=== PATIENT | female | born 1985 | race Caucasian/White ===

== ENCOUNTER → 2019-04-13 07:59 | Outpatient (CLI) | payer OTHER, BC, SELFPAY ==
--- NOTE | ~2019-04-13 | MM_ITS ---
EXAMINATION: MM diagnostic xavier LT w tata HISTORY: Left breast pain and possible left breast lump TECHNIQUE: Craniocaudal, mediolateral, and mediolateral oblique 3-D tomosynthesis images of the left breast were performed and synthetic 2-D images were generated. CAD analysis was submitted and interpr eted. COMPARISON: None, baseline BREAST PARENCHYMAL COMPOSITION: The breasts are extremely dense, which lowers the sensitivity of mamm ography. FINDINGS: No mammographic correlate is identified for the patient's reported breast pain or left shannan st lump. There is no suspicious mass, calcification, or architectural distortion. IMPRESSION: 1. No specific mammographic correlate is identified for the reported palpable abnormality of concern with the patient's left breast pain. Further evaluation at this time should be based on clinical asse ssment. Continued follow-up physical examination is recommended. 2. Recommend routine screening mammography beginning at age 40. BI-RADS Category 1: Negative Reviewed, dictated and finalized at location A. ERS IMPRESSION: 1. No specific mammographic correlate is identified for the reported palpable a bnormality of concern with the patient's left breast pain. Further evaluation a t this time should be based on clinical assessment. Continued follow-up physica l examination is recommended. 2. Recommend routine screening mammography beginning at age 40. BI-RADS Category 1: Negative
--- NOTE | ~2019-04-13 | US_ITS ---
EXAMINATION: US breast LT limited HISTORY: Not cyclic pain at the 12:00 location of the left breast. TECHNIQUE: Limited left breast ultrasound is performed. FINDINGS: There is no evidence of focal abnormal cystic or solid mass in the vicinity of the area of the patient's left breast pain. IMPRESSION: No specific sonographic correlate is identified for patient's left breast pain. Further evaluation at this time should be based on clinical assessment. Continued follow-up physical examination is recomm ended. BI-RADS Category 1: Negative Reviewed, dictated and finalized at location A. CTOR OF INSTRUCTION IMPRESSION: No specific sonographic correlate is identified for patient's left breast pain. Further evaluation at this time should be based on clinical assessment. Contin ued follow-up physical examination is recommended. BI-RADS Category 1: Negative
== END ==
PROVIDERS: PCP Nurse Practitioner Adult Health; Visit Provider Obstetrics & Gynecology
DX: N64.4 Mastodynia (principal)
CPT/HCPCS: 76642; 77061; 77065; G0279

== ENCOUNTER 2021-05-29 07:36 | Outpatient (CLI) | payer OTHER, SELFPAY ==
--- NOTE | ~2021-05-29 | MM_ITS ---
EXAMINATION: MM screening xavier BI w tata HISTORY: Screening mammogram TECHNIQUE: Craniocaudal and mediolateral oblique 3-D tomosynthesis images were obtained and synthetic 2-D images were generated. CAD analysis was submitted and interpreted. COMPARISON: April 13, 2019 diagnostic left mammogram and limited left breast ultrasound examination BREAST PARENCHYMAL COMPOSITION: The breasts are extremely dense, which lowers the sensitivity of mamm ography. FINDINGS: There is no evidence of suspicious mass, calcification, or architectural distortion to sugg est malignancy in either breast. There has been no suspicious interval change. IMPRESSION: 1. No mammographic evidence of malignancy. 2. Recommend routine screening mammography in one year. BI-RADS Category 1: Negative Reviewed, dictated and finalized at location A.
== END 2021-05-29 07:37 | disposition home or self-care (01) ==
PROVIDERS: PCP Nurse Practitioner Adult Health; Visit Provider Surgery Plastic and Reconstructive Surgery
DX: Z12.31 Encounter for screening mammogram for malignant neoplasm of breast (principal)
CPT/HCPCS: 77063; 77067

== ENCOUNTER 2021-06-17 00:11 | Day surgery (SDC) | payer OTHER, SELFPAY ==
[2021-06-13 15:36] VITALS: BMI 21.0
--- NOTE | 2021-06-13 15:45 | PC.NURSE ---
Report to the Outpatient Waiting Room, entrance under the green pavilion located off [facility], at time 0830 on date 06/17/21. OR Time: 1030. - You and your visitor will be asked a series of questions to screen for COVID 19 for your protection. - A mask is required within the hospital. One visitor will be allowed to accompany the patient into the hospital. Patients visitor will be instructed to remain with patient at all times or leave the building. We will allow the visitor to come back to the postoperative area when patient is ready. Preoperative COVID Testing Requirements: No COVID Test needed if: (proof is required; if not received patient will have Rapid Test prior to entry) - Patient has received COVID Vaccine at least 14 days prior to procedure date or - Patient has positive COVID test result within last 90 days of surgery date. COVID Test needed if above criteria is not met Patients may have clear liquids (water, carbonated beverages, clear teas, apple juice) until 3 hours prior to surgery with a maximum of 20 ounces. - No food from midnight until time of surgery Take the following medications with a SIP of water the morning of surgery: SERTRALINE Medications to discontinue per physician: N/A Date to take last dose: N/A Please no make-up, nail romanian, hairspray, perfume, deodorant, or body powder the day of surgery. No jewelry (including any body piercings) or valuables the day of surgery, leave them at home. Please take a shower or bath the night before, or the morning of, surgery with an antibacterial soap. Wear comfortable, loose fitting clothing. - Jewelry must be removed prior to entering the operating room. Rings and piercings that are not removed may be cut off. - The hospital will not accept responsibility for valuables. - Please leave all valuables, including medications, at home the day of surgery. If you are going home after surgery, a licensed commercial collections driver must drive you home. - NO public transportation without another adult. - We recommend that an adult stay with you for 24 hours following discharge. - We also recommend that you do not drive, make important decision, drink alcoholic beverages, or take any drugs that were not prescribed by your health care provider for at least 24 hours after your discharge time. Follow any additional instructions given to you from your surgeon. Telephone instructions given to SANCHEZ RAMEY and asked if any additional questions and then verbalized understanding. Patient advised to call surgeon office or pre surgery nurse liaison [phone] if any additional questions.
[2021-06-17] VITALS (9 sets, daily range): BP systolic 88–102; BP diastolic 54–72; PULSE 55–80; RESP 12–16; TEMP 36.6–37.5; O2SAT 95–100
[2021-06-17] MEDS: LACTATED RINGERS 1,000 ML 30 ML IV CONT ×2 (09:45→13:19)
--- NOTE | 2021-06-17 09:50 | WPDHPUPDATE1 ---
History and Physical Update Update Date/Time: 06/17/21 09:50 History and Physical has been reviewed, including an updated exam of the patient. There are NO changes in the patient's condition. Risks, benefits, and alternatives have been discussed and questions answered. Patient agrees to proceed with procedure.
[2021-06-17] MEDS: TRANEXAMIC ACID 1,000MG/ISO100 1,000 MG/100 ML BAG 200 MG IVPB (10:00)
--- NOTE | 2021-06-17 10:06 | P.OP_ITS ---
Procedure Note - Detailed Date of Procedure 06/17/21 Pre-op Diagnosis Micromastia Post-op Diagnosis Same Procedure Performed Augmentation mastopexy with galaflex Surgeon Jose Castro MD Anesthesia General Findings Inverted T Superior Medial pedicle Implants bilateral barbra Oropeza SoftTouch 300cc Right - REF# SSLP-300 SN [id number] Left - REF# [id number] SN [id number] Galaflex REF# [id number] Description of Procedure She is here today for bilateral breast augmentation mastopexy. Previously and again today the risks, benefits, alternatives were discussed in extensive detail. I wanted her to be very realistic about the risks involved as well as expectations. We discussed aftercare and what to monitor for. Made sure answered all of her questions to her satisfaction today and consent was obtained. Marked in the preoperative holding area with their verification. The patient was taken to the operating room placed supine on the operating table. Anesthesia was provided by anesthesiology. A surgical time-out was taken. We cleansed the skin and 1% lidocaine and 0.25% Marcaine with epinephrine was used anesthetize as a field block. She was prepped and draped in a standard sterile fashion. Tegaderm nipple Booth were placed. A 15 blade used to make an incision just superior to the inframammary fold leaving a cusp of de-epithelized tissue at the t junction. Dissection was continued until the chest wall as identified. I incised the pectoralis major along its inferior border and completely released the inferior border leaving the medial border intact. I created a subpectoral pocket in the appropriate dimensions based on our preoperative planning for the implant. I then copiously irrigated with saline solution and verified a strict hemostasis. Next the use a triple antibiotic and Betadine containing solution to irrigate the pocket. I washed my gloves with the triple antibiotic and Betadine solution. We washed the implant immediately upon opening it with this solution and only opened it when we needed it. I used implant funnel and no-touch technique. The implant was introduced into the pocket using the funnel. Having verified positioning of the implant this was closed using 2-0 Vicryl. I tailor tacked the breast into position. Placed her in a sitting position. Verified the nipple-areolar location based on preoperative planning as well as intraoperative observations and measurements in full agreement. She was placed supine. I de-epithelialized the pedicle. I then removed the inferior central portion of the breast need making sure the implant was well protected. I elevated medial and lateral tissue flaps as well for planned closure. Galaflex had been soaking in betadine implant mix. Galaflex was trimmed and sutured into place with 2-0 Vicryl bilateral. I closed along the IMF with 2-0 Stratafix. Along the vertical with 2-0 PDS. I closed around the Alirio with 3-0 strata fix. 3-0 Monocryl along the vertical. 3-0 Stratafix along the IMF. I finally closed everything with running subcut icular 4-0 Monocryl and tissue glue. Fluffs and surgical bra were placed. Estimated Blood Loss 50 Drains No Packing No Pathology None sent Complications No immediate complications Condition Stable Disposition PACU
--- NOTE | 2021-06-17 10:07 | WPDANESEPPF ---
Anes - Initial Pre Proc Eval Procedure: Operation Date: 06/17/21 10:30 Proposed Procedures p Bilateral Breast Augmentation with Mastopexy with Galaflex - Jose Castro MD Date/Time: 06/17/21 10:07 Surgeon: Jose Castro MD Pre Op Diagnosis: Micromastia Patient Data Age: 36 Gender: F Height: 1.57 m Weight: 52.16 kg Allergies Allergy/AdvReac Type Severity Reaction Status Date / Time No Known Allergies Allergy Unverified 06/17/21 09:48 Home Medications Medication Instructions Recorded Confirmed Type docusate sodium 100 mg capsule 100 mg PO DAILY #14 cap 06/02/21 06/17/21 Rx ondansetron HCl 4 mg tablet 4 mg PO Q8H #21 tablet 06/02/21 06/17/21 Rx carisoprodol 350 mg tablet 350 mg PO TID PRN #21 tablet 06/03/21 06/17/21 Rx oxycodone-acetaminophen 5 mg-325 1 tablet PO Q6H PRN #30 tablet 06/03/21 06/17/21 Rx mg tablet sertraline 50 mg PO DAILY 06/13/21 06/17/21 History Patient hx anesthesia problems: none Family hx anesthesia problems: none Results Review: All pre-operative results and documents have been reviewed as part of the pre-operative evaluation. ON LICENSE OF [facility] Past Medical History Medical History (Updated 06/17/21 @ 10:07 by Darrick Holt MD) Anxiety Surgical History Surgical History (Updated 06/17/21 @ 10:07 by Darrick Holt MD) H/O wisdom tooth extraction Social History Social History (Updated 06/17/21 @ 10:18 by Darrick Holt MD) Smoking status: Never smoker Alcohol intake: current Drinks per week: 4 Substance use: never Substance use type: does not use Living arrangements: with family Additional living arrangements comments: CHILDREN Spiritual care concerns: No Anes - Eval Final PreProcedure Day of Procedure 06/17/21 10:07 Patient weight: normal Heart: regular rate and rhythm Lungs: clear to auscultation Airway: Mallampati scale class II Neurological: alert and oriented Last oral intake: >/= 8 hours ASA classification: II Emergent: no Anesthetic plan: proceed Anesthesia type and monitoring: general LMA and standard monitoring Results Review: All pre-operative results and documents have been reviewed as part of the pre-operative evaluation. Informed Consent: The patient's anesthetic plan and its attendant risks and benefits were discussed with the patient/family/POA. Questions were solicited and answers provided to the satisfaction of the patient/family/POA.
[2021-06-17 10:24] LABS: Urine Cotinine NEGATIVE
[2021-06-17] MEDS: ceFAZolin 2 GM/D5W 50 ML 2 GM/50 ML BAG IVPB (10:29)
[2021-06-17] MEDS: BUPIVACAINE HCL 0.25% PF 30 ML VIAL INFILTRATE (10:42)
[2021-06-17] MEDS: LIDO 1%/EPINEPHRINE/PF 1:200,000 30 ML VIAL XX (10:42)
[2021-06-17] MEDS: NACL 0.9% IRRIG POUR BOTTLE 900 ML, GENTAMICIN SULFATE INJ 160 MG, ceFAZolin 2 GM, POVI... IRRIGATION (11:16)
[2021-06-17] MEDS: fentaNYL CITRATE INJ (*CRX) 100 MCG/2 ML VIAL 25 MCG IV PUSH ×4 (13:40→14:02)
[2021-06-17] MEDS: oxyCODONE HCL (*CRX) 5 MG TAB IR PO (15:05)
== END 2021-06-17 15:55 | disposition home or self-care (01) ==
PROVIDERS: PCP Nurse Practitioner Adult Health; Visit Provider Surgery Plastic and Reconstructive Surgery
PROC: (CPT 19316; principal; 2021-06-17 10:30)
DX: Z41.1 Encounter for cosmetic surgery (principal); N64.82 Hypoplasia of breast; F41.9 Anxiety disorder, unspecified; Z79.899 Other long term (current) drug therapy
CPT/HCPCS: 19316; 19325; 15777 ×2; 80307; A9270; J0690; J1100; J1580; J2250; J2405; J2704; J3010; J7120

== ENCOUNTER 2023-11-24 08:06 | Outpatient (CLI) | payer OTHER, SELFPAY ==
[2023-11-24 08:55] LABS: Hematocrit 35.5 % (37.0-47.0)
== END 2023-11-24 08:07 | disposition home or self-care (01) ==
LOC: ANHSURGERY 08:09
PROVIDERS: PCP Family Medicine; Visit Provider Obstetrics & Gynecology
DX: Z01.812 Encounter for preprocedural laboratory examination (principal); N92.6 Irregular menstruation, unspecified
CPT/HCPCS: 36415; 85014; 85018

== ENCOUNTER 2023-11-26 00:20 | Day surgery (SDC) | payer OTHER, SELFPAY ==
[2023-11-18 14:27] VITALS: BMI 21.9
--- NOTE | 2023-11-18 14:48 | PC.NURSE ---
Report to the Outpatient Waiting Room, entrance under the green pavilion located off [facility], at time _0630_ on date _11/26/23 . Planned Procedure Time: _0830__.? Time changes happen often and if your time is changed the preop area will call you the afternoon before. - You and your visitor will be asked to self-screen and do not enter if you have any COVID symptoms. Please call surgeon if you need to reschedule. - A mask is optional within the hospital at this time. Patients may have clear liquids (water, carbonated beverages, clear teas, apple juice) until 3 hours prior to surgery with a maximum of 20 ounces. - No food from midnight until time of surgery and no smoking Take only the following medications with a SIP of water on the morning of surgery: ___SERTRALINE DO NOT STOP ANY OF YOUR OTHER PRESCRIPTION MEDICATIONS PRIOR TO SURGERY EXCEPT THE FOLLOWING Medications to discontinue per physician NONE Date to take last dose____NONE Please no make-up, nail samoan, hairspray, perfume, deodorant, or body powder the day of surgery.? No jewelry (including any body piercings) or valuables the day of surgery, leave them at home.? Please take a shower or bath the night before, or the morning of, surgery with an antibacterial soap.? Wear comfortable, loose fitting clothing.? - Jewelry must be removed prior to entering the operating room.? Rings and piercings that are not removed may be cut off. - The hospital will not accept responsibility for valuables.? - Please leave all valuables, including medications, at home the day of surgery. If you are going home after surgery, a licensed passenger coach driver must drive you home.? - NO public transportation without another adult if you receive anesthesia. - We recommend that an adult stay with you for 24 hours following discharge. - We also recommend that you do not drive, make important decision, drink alcoholic beverages, or take any drugs that were not prescribed by your health care provider for at least 24 hours after your discharge time. Follow any additional instructions given to you from your surgeon. Telephone instructions given to __SANCHEZ and asked if any additional questions and then verbalized understanding. Patient advised to call surgeon office or pre surgery nurse liaison [phone] if any additional questions.
--- NOTE | 2023-11-23 12:44 | PM.IMHP ---
H&P: HPI History of Present Illness Date/Time: 11/23/23 12:44 Chief Complaint: bleeding Narrative: CC 38-year-old female with thickened endometrium proceeded suspected polyp she will undergo hysteroscopy/ dilatation curettage/polypectomy. Risks and benefits reviewed including exclusive , aspiration, bleeding transfusion perforation injury to bowel, bladder, ureters, or other internal organs with need for open laparotomy she received the OG handouts entitled hysteroscopy as well as dilatation curettage respectively. she had all questions answered she asked to proceed PMFSH Past Medical History Medical History Anxiety Surgical History Surgical History H/O wisdom tooth extraction Social History Social History Smoking status: Never smoker Alcohol intake: never Drinks per week: 4 Substance use: never Substance use type: does not use Living arrangements: with family Additional living arrangements comments: CHILDREN Gender identity (if verbalized by the patient): Female Sexual Orientation (if Verbalized by the Patient): Straight or Heterosexual Spiritual care concerns: No Meds Home Medications and Allergies Home Medications Medication Instructions Recorded Confirmed Type sertraline 50 mg tablet 50 mg PO DAILY 06/13/21 11/18/23 History Allergies Allergy/AdvReac Type Severity Reaction Status Date / Time No Known Allergies Allergy Unverified 08/14/21 10:40 Exam Const: General: cooperative, healthy appearing and comfortable Nutritional Appearance: average body habitus Orientation/consciousness: oriented to person, oriented to place and oriented to time HENMT: Head: normal to inspection Chest: Chest palpation & inspection: normal inspection of the chest Resp: Effort & Inspection: normal respiratory effort Cardio: Rate: regular rate Rhythm: regular rhythm Heart sounds: S1 normal heart sound present and S2 normal heart sound present GI: Inspection: normal to inspection : External Female Exam: normal external appearance Speculum Exam - Vagina: normal appearance of the vagina and vaginal bleeding Speculum Exam - Cervix: normal appearance of the cervix Bimanual exam- vagina & uterus: enlarged Bimanual Exam- Adnexa, other: normal adnexae Assessment and Plan Assessment and plan (1) Excessive bleeding: Code(s): R58 - Hemorrhage, not elsewhere classified Status: Acute Assessment and Plan: hysteroscopy/ dilatation curettage with probable polypectomy
--- NOTE | 2023-11-26 05:25 | WPDHPUPDATE1 ---
History and Physical Update Update Date/Time: 11/26/23 05:25 History and Physical has been reviewed, including an updated exam of the patient. There are NO changes in the patient's condition. Risks, benefits, and alternatives have been discussed and questions answered. Patient agrees to proceed with procedure.
[2023-11-26 07:07] VITALS: BP 93/60; PULSE 57; RESP 20; TEMP 36.8; O2SAT 100
[2023-11-26] MEDS: LACTATED RINGERS 1,000 ML 30 ML IV CONT (07:10)
--- NOTE | 2023-11-26 07:50 | WPDANESEPPF ---
Anes - Initial Pre Proc Eval Procedure: Operation Date: 11/26/23 08:30 Proposed Procedures p Hysteroscopy Dilation and Curettage with Polypectomy - Darrick Velazco MD Date/Time: 11/26/23 07:50 Surgeon: Darrick Velazco MD Pre Op Diagnosis: irregular bleeding,uterine polyps Patient Data Age: 38 Gender: F Height: 1.57 m Weight: 55.8 kg Last Vital Signs Temp 36.8 C 11/26/23 07:07 Pulse 57 L 11/26/23 07:07 Resp 20 11/26/23 07:07 BP 93/60 L 11/26/23 07:07 Pulse Ox 100 11/26/23 07:07 O2 Del Method Room Air 11/26/23 07:07 Allergies Allergy/AdvReac Type Severity Reaction Status Date / Time No Known Allergies Allergy Unverified 08/14/21 10:40 Home Medications Medication Instructions Recorded Confirmed Type sertraline 50 mg tablet 50 mg PO DAILY 06/13/21 11/18/23 History hydrocodone 5 mg-acetaminophen 325 1 tablet PO Q4H PRN pain #20 tabs 11/26/23 Rx mg tablet Patient hx anesthesia problems: none Family hx anesthesia problems: none Results Review: All pre-operative results and documents have been reviewed as part of the pre-operative evaluation. [facility] Past Medical History Medical History Anxiety Surgical History Surgical History H/O wisdom tooth extraction Social History Social History Smoking status: Never smoker Alcohol intake: never Drinks per week: 4 Substance use: never Substance use type: does not use Living arrangements: with family Additional living arrangements comments: CHILDREN Gender identity (if verbalized by the patient): Female Sexual Orientation (if Verbalized by the Patient): Straight or Heterosexual Spiritual care concerns: No Anes - Eval Final PreProcedure Day of Procedure 11/26/23 07:50 Patient weight: normal Heart: regular rate and rhythm Lungs: clear to auscultation Airway: Mallampati scale class II Neurological: alert and oriented Last oral intake: >/= 8 hours ASA classification: II Emergent: no Anesthetic plan: proceed Anesthesia type and monitoring: general GIVS and standard monitoring Results Review: All pre-operative results and documents have been reviewed as part of the pre-operative evaluation. Informed Consent: The patient's anesthetic plan and its attendant risks and benefits were discussed with the patient/family/POA. Questions were solicited and answers provided to the satisfaction of the patient/family/POA.
[2023-11-26 08:10] LABS: BEDSIDEPREGUCG Negative (Negative)
[2023-11-26] MEDS: LIDOCAINE HCL 1% LOCAL INJ 20 ML VIAL 10 ML INFILTRATE (08:50)
--- NOTE | 2023-11-26 08:59 | P.OP_ITS ---
Procedure Note - Detailed Date of Procedure 11/26/23 Pre-op Diagnosis irregular bleeding,uterine polyps Post-op Diagnosis Same Procedure Performed Hysteroscopy/ polypectomy/dilatation and curettage Surgeon Darrick Velazco MD Anesthesia MAC and Local Indications 38-year-old female with a uterine polyp Findings uterine polyp had a benign appearance. The uterus sounded to 9cm Description of Procedure patient was prepped and draped in the normal sterile fashion placed in the dorsal lithotomy position. Under excellent IV sedation weighted speculum placed in posterior fornix vagina. Anterior lip of the cervix grasped with single- tooth tenaculum. 2.5cc of 1% xylocaine anesthesia placed at 2, 4, 8, 10:00 a.m. of the cervix. Uterus sounded to 9cm. Serial dilatation with fragmented dilators performed followed by passage of the 5mm visualizing hysteroscope using normal saline as visualizing medium. A moderate-sized polyp was seen. The reticulating instrument was placed in the uterus and it was removed in completion and the entire 360? of endometrium sampled as well. The instruments withdrawn blood loss estimated 5cc. Sponge, needle, instrument counts were correct. There were no immediate complications Estimated Blood Loss 5 Drains No Packing No Pathology Yes Complications No immediate complications Condition Stable Disposition PACU
[2023-11-26 09:05] VITALS: BP 91/49; PULSE 71; RESP 12; O2SAT 98
[2023-11-26 09:35] VITALS: BP 93/61; PULSE 77; RESP 14
[2023-11-26 10:05] VITALS: BP 132/93; PULSE 85; RESP 14
== END 2023-11-26 10:11 | disposition home or self-care (01) ==
PROVIDERS: PCP Family Medicine; Visit Provider Obstetrics & Gynecology
PROC: 0U5B8ZZ Destruction of Endometrium, Via Natural or Artificial Opening Endoscopic (ICD-10-PCS; CPT 58563; principal; 2023-11-26 08:30)
DX: N92.6 Irregular menstruation, unspecified (principal); N84.0 Polyp of corpus uteri; F41.9 Anxiety disorder, unspecified
CPT/HCPCS: 58558; 36415; 85014; 85018; 88305; J1596; J2250; J2405; J2704; J3010; J7120